=== PATIENT | male | born 1980 | race Caucasian/White ===

== ENCOUNTER 2016-06-26 10:26 | Emergency (ER) | payer OTHER ==
[~2016-06-26] VITALS: Ht 185.4 cm; Wt 96.5 kg
[~2016-06-26 10:26] MED LIST: OXYCODONE15 MG PO
[2016-06-26 11:11] LABS: CREATININE 0.9 mg/dL (0.6-1.3); POTASSIUM 4.2 mEq/L (3.7-5.4)
[2016-06-26 11:17] LABS: EOSINOPHIL (%) 0.6 % (0-5); HEMATOCRIT 44.9 % (38.0-50.0); IMMATURE GRANULOCYTE (%) 0.4 % (0.0-0.7); IMMATURE GRANULOCYTE COUNT 0.2 K/uL; LYMPHOCYTE COUNT 1.8 K/uL (1.0-2.8); MCHC 34.1 G/DL (30.0-36.0); MCV 82.1 FL (86-99); MONOCYTE COUNT 0.4 K/uL (0-0.8); NEUTROPHIL (%) 57.9 % (45-76); NEUTROPHIL COUNT 3.1 K/uL (1.8-6.4); PLATELET COUNT 280 K/uL (156-360); RBC DIS.WIDTH-CV 13.8 % (11.8-14.6); RBC DIS.WIDTH-SD 40.5 % (39-53); RED BLOOD COUNT 5.47 M/uL (4.00-5.50); WHITE BLOOD COUNT 5.4 K/uL (4.1-10.2)
[2016-06-26 11:35] LABS: CHLORIDE 106 mEq/L (99-109); POTASSIUM 4.2 mEq/L (3.7-5.4); SODIUM 140 mEq/L (136-147)
[2016-06-26 11:36] LABS: GLUCOSE 99 mg/dL (70-99)
[2016-06-26 11:38] LABS: ANION GAP 11 MEQ/L (2-14)
[2016-06-26 11:40] LABS: GFR ESTIMATE (CALCULATED) > 59 mL/min/
[2016-06-26 11:41] LABS: UREA NITROGEN (BUN) 17 mg/dL (9-23)
[2016-06-26 14:18] LABS: SERUM ETHYL ALCOHOL < 10 mg/dL
[2016-06-26 14:42] LABS: TOTAL BILIRUBIN 0.4 mg/dL (0.0-1.0)
[2016-06-26 14:43] LABS: ALKALINE PHOSPHATASE 47 IU/L (3-129)
[2016-06-26 14:46] LABS: DIRECT BILIRUBIN 0.2 mg/dL (0.0-0.3)
[2016-06-26 14:50] LABS: ADD MIUA? YES; BILIRUBIN NEGATIVE; BLOOD NEGATIVE; COLOR YELLOW ((YELLOW)); GLUCOSE (STRIP) NEGATIVE; KETONES NEGATIVE; LEUKOCYTES NEGATIVE; NITRITE NEGATIVE; PROTEIN (STRIP) 30; SPECIFIC GRAVITY 1.025 (1.000-1.030); UROBILINOGEN 0.2 MG/DL (0.2-1.0)
[2016-06-26 15:03] LABS: AMPHETAMINE NEGATIVE (500 ng/mL); BARBITURATES NEGATIVE (200 ng/mL); BENZODIAZEPINES NEGATIVE (150 ng/mL); COCAINE NEGATIVE (150 ng/mL); INTERNAL CONTROLS VALID? YES; METHADONE NEGATIVE (200 ng/mL); METHAMPHETAMINE NEGATIVE (500 ng/mL); OPIATES (MORPHINE) NEGATIVE (100 ng/mL); OXYCODONE NEGATIVE (100 ng/mL); PHENCYCLIDINE NEGATIVE (25 ng/mL); PROPOXYPHENE NEGATIVE (300 ng/mL); THC CANNABINOIDS NEGATIVE (50 ng/mL); TRICYCLIC ANTIDEPRESSANTS NEGATIVE (300 ng/mL)
[2016-06-26 15:11] LABS: BACTERIA RARE /HPF; EPITHELIAL CELLS RARE /HPF; MUCUS NONE SEEN /LPF; RED BLOOD CELLS 0-5 /HPF (0-5); UCUL ADDED? NO; WHITE BLOOD CELLS 0-5 /HPF (0-5)
[2016-06-26] MEDS ORDERED: THIAMINE HCL100 MG PO (15:13)
[2016-06-26] MEDS ORDERED: VALIUM10 MG PO (15:13)
[2016-06-26 15:34] VITALS: BP 139/98
== END 2016-06-26 15:36 | disposition home or self-care (01) ==
LOC: EME 10:26
PROVIDERS: Emergency Medicine; Physician Assistant
DX: F11.23 Opioid dependence with withdrawal (principal); F10.239 Alcohol dependence with withdrawal, unspecified; G40.409 Other generalized epilepsy and epileptic syndromes, not intractable, without status epilepticus; R51 Headache; R42 Dizziness and giddiness
CPT/HCPCS: 70450; 71020; 80047; 80048; 80076; 81003; 83605; 85025; 90839; 93005; 99281; 99285; G0480; J7030

== ENCOUNTER 2016-08-05 14:48 | Emergency (ER) | payer OTHER ==
[~2016-08-05] VITALS: Ht 185.4 cm; Wt 98.6 kg
[~2016-08-05 14:48] MED LIST changes: +THIAMINE HCL100 MG PO; +VALIUM10 MG PO
[2016-08-05 15:30] LABS: HEMATOCRIT 47.1 % (38.0-50.0); MCH 27.8 PG (29.0-34.0); MCHC 32.7 G/DL (30.0-36.0); MEAN PLAT.VOLUME 8.9 uM^3 (9.0-12.4); PLATELET COUNT 289 K/uL (156-360); RBC DIS.WIDTH-CV 14.4 % (11.8-14.6); RBC DIS.WIDTH-SD 44.8 % (39-53); RED BLOOD COUNT 5.54 M/uL (4.00-5.50)
[2016-08-05 15:38] LABS: CHLORIDE 103 mEq/L (99-109); POTASSIUM 4.3 mEq/L (3.7-5.4); SODIUM 141 mEq/L (136-147)
[2016-08-05 15:40] LABS: GLUCOSE 97 mg/dL (70-99)
[2016-08-05 15:41] LABS: ANION GAP 12 MEQ/L (2-14)
[2016-08-05 15:43] LABS: SERUM ETHYL ALCOHOL < 10 mg/dL
[2016-08-05 15:44] LABS: GFR ESTIMATE (CALCULATED) > 59 mL/min/
[2016-08-05 15:45] LABS: UREA NITROGEN (BUN) 12 mg/dL (9-23)
[2016-08-05 18:05] VITALS: BP 132/84
== END 2016-08-05 18:39 | disposition home or self-care (01) ==
LOC: EME 14:48
DX: F43.20 Adjustment disorder, unspecified (principal); F10.10 Alcohol abuse, uncomplicated
CPT/HCPCS: 80048; 85027; 99281; 99284; G0480